=== PATIENT | male | born 1990 | race African-American/Black ===

== ENCOUNTER 2016-09-05 18:07 | Emergency (ER) | payer OTHER ==
[2016-09-05] MEDS ORDERED: LIDOCAINE 2% MDV 20 ML VIAL As Ordered ONE (18:26)
[2016-09-05] MEDS ORDERED: MORPHINE 4 MG/ML 1ML SYRINGE As Ordered ONE (18:44)
[2016-09-05] MEDS ORDERED: ceFAZolin 1GM INJ (J0690) As Ordered ONE (18:45)
--- NOTE | 2016-09-05 18:54 | REP ---
Clinical: Trauma. Technique: AP, lateral, bilateral oblique views of the left third digit. Findings: There is partial amputation of the soft tissues and the very tip of the distal phalanx at the terminal tuft. Nondisplaced fracture of the distal phalanx is also identified. Impression: Trauma to the distal phalanx including partial amputation and nondisplaced fracture. Signed by Calderon Penny MD 09/05/2016 06:46 P
[2016-09-05] MEDS ORDERED: NORCO 5/325MG TABLET (BULK) As Ordered ONE (19:54)
--- NOTE | 2016-09-05 20:06 | EDDOCDS ---
Physician Documentation [facility] Name: Arjun Young Age: 26 yrs Sex: Male : 1990 Arrival Date: 09/05/2016 Time: 18:07 Bed I7 / 29 Private MD: Colleen [facility] [place] Disposition: 09/05/16 19:46 Discharged to Home/Self Care. Impression: Laceration without foreign body of left middle finger without damage to nail, Nondisplaced fracture of distal phalanx of left middle finger - open. - Condition is Stable. - Discharge Instructions: Finger Fracture, Fingertip Injuries and Amputations, Laceration Care, Adult. - Prescriptions for Keflex 500 mg Oral Capsule - take 1 capsule by ORAL route every 8 hours for 10 days; 30 capsule. [place] 5- 325 mg Oral Tablet - take 1 tablet by ORAL route every 6 hours As needed MDD: 4 tabs; 20 tablet. - Medication Reconciliation, Local Pharmacy Hours form. - Follow up: Jesus Miranda; When: Tomorrow; Reason: Recheck today's complaints, Continuance of care. - Problem is new. - Symptoms are unchanged. - Notes: follow up with dr miranda tomorrow at ortho clinic at 11am Historical: - Allergies: No known drug Allergies; - Home Meds: 1. none - PMHx: none; - PSHx: none; - Social history: Smoking status: Patient states was never smoker of tobacco. Patient uses alcohol only on a social basis. Patient/guardian denies using street drugs, No barriers to communication noted, The patient speaks fluent [place], Speaks appropriately for age. - Family history: Not pertinent. - : The pt / caregiver states he / she is not on anticoagulants. Home medication list is obtained from the patient. - Exposure Risk Screening:: None identified. Vital Signs: 09/05 18:09 BP 167 / 54; Pulse 64; Resp 16; Temp 97.8(O); Pulse Ox 97% on R/A; Weight 115.21 kg / lr2 253.99 lbs (R); Height 6 ft. 2 in. (187.96 cm) (R); Pain 7/10; 19:50 BP 146 / 69; Pulse 63; Resp 18; Temp 97; Pulse Ox 100% ; Pain 5/10; jlm 18:09 Body Mass Index 32.61 (115.21 kg, 187.96 cm) lr2 MDM: 18:16 Fingers Ordered. EDMS 18:24 Lidocaine 20 mg/mL (2 %) 10 ml Infiltration once; to bedside ordered. mo1 18:36 IV Saline Lock ordered. mo1 18:37 morphine 4 mg IVP once ordered. mo1 18:37 ceFAZolin 2 grams IVPB once over 30 mins; dilute in 50mL of NS or D5W ordered. mo1 19:43 Dressing ordered. mo1 19:43 HYDROcodone-acetaminophen 4 pack- 5 mg-325 mg 1 packets PO Per package directions; mo1 Dispense with patient. 1 po q4h prn for pain ordered. 19:45 Financial registration complete. zo Administered Medications: 18:32 Drug: Lidocaine 10 ml [lidocaine 20 mg/mL (2 %) injection solution (10 mL)] {Note: kc3 administered by LEXUS Calderon.} Route: Infiltration; 18:55 Drug: morphine 4 mg [morphine 4 mg/mL intravenous cartridge (1 mL)] Route: IVP; Site: rs3 left antecubital; 18:55 Drug: ceFAZolin 2 grams [cefazolin 1 gram solution for injection] Route: IVPB; Infused rs3 Over: 30 mins; Site: left antecubital; 19:56 Drug: HYDROcodone-acetaminophen 4 pack- 1 packets [hydrocodone 5 mg-acetaminophen 325 mf4 mg tablet (1 tabs)] {Co-Signature: rs3 (Daniela Braswell RN).} Route: PO; Signatures: Dispatcher MedHost EDMS Devan Long zo Ramos Cook,MEDICAL DEVICE SALES REPRESENTATIVE MEDICAL DEVICE SALES REPRESENTATIVE mf4 Layla Murrell RN RN ttb Bharat Ayala PA PA mo1 Daniela Braswell RN rs3 Mary Grant RN kc3 Daniela Braswell RN rs3 [facility] [place]
--- NOTE | 2016-09-05 20:07 | EDDOCDS ---
Nurse's Notes [facility] Name: Arjun Young Age: 26 yrs Sex: Male : 1990 Arrival Date: 09/05/2016 Time: 18:07 Bed I7 / 29 Private MD: HARJINDER Macias Diagnosis: Laceration without foreign body of left middle finger without damage to nail;Nondisplaced fracture of distal phalanx of left middle finger-open Presentation: 09/05 18:10 Presenting complaint: Patient states: weight fell onto left middle finger approx 1 hr ttb ago : pt and applications programmer state the "fingertip is gone". pt and applications programmer are asking for pain meds. Immunizations UTD. Adult Sepsis Screening: The patient does not have new or worsening altered mentation. Patient's respiratory rate is less than 22. Systolic blood pressure is greater than 100. Patient has a qSOFA score of 0- Negative Sepsis Screen. Suicide/Homicide risk assessment- the patient denies having any suicidal and/or homicidal ideations and does not present with any other emotional, behavioral or mental health complaints. 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 Transition of care: patient was not received from another setting of care. 18:10 Acuity: FROYLAN Level 3 ttb 18:10 Method Of Arrival: Ambulance ttb Triage Assessment: 18:12 General: Appears uncomfortable, well nourished, well groomed, Behavior is anxious, ttb appropriate for age, cooperative, pleasant. Pain: Location: left finger Pain currently is 7 out of 10 on a pain scale. Pt Declines HIV testing. Neurological: Level of Consciousness is awake, alert. Respiratory: No deficits noted. Airway is patent. GI: Denies nausea. Derm: Skin is normal, lacerated left middle finger. Musculoskeletal: Range of motion limited in left middle finger. Injury Description: crush injury to left middle finger. Historical: - Allergies: No known drug Allergies; - Home Meds: 1. none - PMHx: none; - PSHx: none; - Social history: Smoking status: Patient states was never smoker of tobacco. Patient uses alcohol only on a social basis. Patient/guardian denies using street drugs, No barriers to communication noted, The patient speaks fluent Estonian, Speaks appropriately for age. - Family history: Not pertinent. - : The pt / caregiver states he / she is not on anticoagulants. Home medication list is obtained from the patient. - Exposure Risk Screening:: None identified. Screenin:58 Screening information is obtained from the patient. Fall risk: No risks identified. rs3 Assistance ADL's: requires no assistance with activities of daily living. Abuse/DV Screen: The patient / caregiver reports he/she is: not in a situation that causes fear, pain or injury. Nutritional screening: No deficits noted. Advance Directives: Currently, there is no health care proxy. home support is adequate. Assessment: 18:55 General: Appears in no apparent distress, Behavior is appropriate for age, cooperative. rs3 Pain: Location: left third finger. Neurological: Level of Consciousness is awake, alert. Respiratory: Airway is patent Respiratory effort is even, unlabored. Derm: partial avulsion of goldberg side of third finger. bleeding moderate. sensation intact. Vital Signs: 18:09 BP 167 / 54; Pulse 64; Resp 16; Temp 97.8(O); Pulse Ox 97% on R/A; Weight 115.21 kg lr2 (R); Height 6 ft. 2 in. (187.96 cm) (R); Pain 7/10; 19:50 BP 146 / 69; Pulse 63; Resp 18; Temp 97; Pulse Ox 100% ; Pain 5/10; jlm 18:09 Body Mass Index 32.61 (115.21 kg, 187.96 cm) lr2 Vitals: 18:09 Log In Time: September 05, 2016 at 18:07. lr2 ED Course: 18:08 Patient visited by Ashley Kidd. lr2 18:08 Colleen [facility] [place] Private Physician. lr2 18:08 Patient moved to Waiting lr2 18:09 Patient moved to Pre RCE lr2 18:12 Triage Initiated ttb 18:15 Patient moved to Triage 1 ar3 18:22 Bharat Ayala PA is PHCP. mo1 18:22 Carlos Anaya MD is Attending Physician. mo1 18:35 Patient moved to I7 / ar3 18:36 Patient visited by Bharat Ayala PA. mo1 18:58 Maintain field IV. Dressing intact. Good blood return noted. Site clean & dry. rs3 19:21 Fingers Returned. EDMS 19:35 Patient visited by Daniela Braswell RN. rs3 19:46 Jesus Severino is Referral Physician. mo1 19:50 Patient visited by Nakia Mohr, Farm Equipment Mechanic Apprentice. [facility] 20:04 The patient / caregiver is instructed regarding the plan of care and ED course. mf4 20:04 Discontinued lock. No procedures done that require assistance. mf4 Administered Medications: 18:32 Drug: Lidocaine 10 ml [lidocaine 20 mg/mL (2 %) injection solution (10 mL)] {Note: kc3 administered by LEXUS Calderon.} Route: Infiltration; 18:55 Drug: morphine 4 mg [morphine 4 mg/mL intravenous cartridge (1 mL)] Route: IVP; Site: rs3 left antecubital; 18:55 Drug: ceFAZolin 2 grams [cefazolin 1 gram solution for injection] Route: IVPB; Infused rs3 Over: 30 mins; Site: left antecubital; 19:56 Drug: HYDROcodone-acetaminophen 4 pack- 1 packets [hydrocodone 5 mg-acetaminophen 325 mf4 mg tablet (1 tabs)] {Co-Signature: rs3 (Daniela Braswell RN).} Route: PO; Order Results: Radiology Order: Fingers Test: Fingers REASON FOR EXAMINATION: Trauma; Clinical: Trauma.; ; Technique: AP, lateral, bilateral oblique views of the left third digit.; ; Findings:; There is partial amputation of the soft tissues and the very tip of the distal; phalanx at the terminal tuft. Nondisplaced fracture of the distal phalanx is; also identified.; ; Impression:; Trauma to the distal phalanx including partial amputation and nondisplaced; fracture.; ; ; Signed by; Calderon Penny MD 09/05/2016 06:46 P; Outcome: 19:46 Discharge ordered by Provider. mo1 20:04 Discharge Assessment: Patient awake, alert and oriented x 3. No cognitive and/or mf4 functional deficits noted. Patient verbalized understanding of disposition instructions. patient administered narcotics - no. The following High Risk Discharge criteria are identified: None. Discharged to home ambulatory, with family, with friend. Condition: stable Condition: improved. Discharge instructions given to patient, Instructed on discharge instructions, follow up and referral plans. medication usage, Demonstrated understanding of instructions, Pt was receptive of discharge instructions/ teaching. Prescriptions given X 1. No special radiology studies were completed. Property sent home with patient. 20:06 Patient left the ED. mf4 Signatures: Dispatcher MedHost Daniela Gandhi,LUCINDA RN rs3 Danette Moeller, PLUSH WEAVER PLUSH WEAVER ar3 Ramos Cook,HOTEL ATTENDANT HOTEL ATTENDANT mf4 Layla Murrell, RN RN ttb Bharat Ayala PA PA mo1 Nakia Mohr, Farm Equipment Mechanic Apprentice Unit Mary Everett RN RN 3 Ashley Kidd 2 Daniela Braswell RN rs3 Corrections: (The following items were deleted from the chart) 19:37 18:55 Pain: Location: right third finger rs3 rs3 MTDD
--- NOTE | 2016-09-07 21:07 | EDDOCDS ---
Nurse's Notes [facility] Name: Arjun Young Age: 26 yrs Sex: Male : 1990 Arrival Date: 09/05/2016 Time: 18:07 Bed I7 / 29 Private MD: HARJINDER Macias Diagnosis: Laceration without foreign body of left middle finger without damage to nail;Nondisplaced fracture of distal phalanx of left middle finger-open Presentation: 09/05 18:10 Presenting complaint: Patient states: weight fell onto left middle finger approx 1 hr ttb ago : pt and tape duplicator state the "fingertip is gone". pt and tape duplicator are asking for pain meds. Immunizations UTD. Adult Sepsis Screening: The patient does not have new or worsening altered mentation. Patient's respiratory rate is less than 22. Systolic blood pressure is greater than 100. Patient has a qSOFA score of 0- Negative Sepsis Screen. Suicide/Homicide risk assessment- the patient denies having any suicidal and/or homicidal ideations and does not present with any other emotional, behavioral or mental health complaints. 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 Transition of care: patient was not received from another setting of care. 18:10 Acuity: FROYLAN Level 3 ttb 18:10 Method Of Arrival: Ambulance ttb Triage Assessment: 18:12 General: Appears uncomfortable, well nourished, well groomed, Behavior is anxious, ttb appropriate for age, cooperative, pleasant. Pain: Location: left finger Pain currently is 7 out of 10 on a pain scale. Pt Declines HIV testing. Neurological: Level of Consciousness is awake, alert. Respiratory: No deficits noted. Airway is patent. GI: Denies nausea. Derm: Skin is normal, lacerated left middle finger. Musculoskeletal: Range of motion limited in left middle finger. Injury Description: crush injury to left middle finger. Historical: - Allergies: No known drug Allergies; - Home Meds: 1. none - PMHx: none; - PSHx: none; - Social history: Smoking status: Patient states was never smoker of tobacco. Patient uses alcohol only on a social basis. Patient/guardian denies using street drugs, No barriers to communication noted, The patient speaks fluent Welsh, Speaks appropriately for age. - Family history: Not pertinent. - : The pt / caregiver states he / she is not on anticoagulants. Home medication list is obtained from the patient. - Exposure Risk Screening:: None identified. Screenin:58 Screening information is obtained from the patient. Fall risk: No risks identified. rs3 Assistance ADL's: requires no assistance with activities of daily living. Abuse/DV Screen: The patient / caregiver reports he/she is: not in a situation that causes fear, pain or injury. Nutritional screening: No deficits noted. Advance Directives: Currently, there is no health care proxy. home support is adequate. Assessment: 18:55 General: Appears in no apparent distress, Behavior is appropriate for age, cooperative. rs3 Pain: Location: left third finger. Neurological: Level of Consciousness is awake, alert. Respiratory: Airway is patent Respiratory effort is even, unlabored. Derm: partial avulsion of goldberg side of third finger. bleeding moderate. sensation intact. Vital Signs: 18:09 BP 167 / 54; Pulse 64; Resp 16; Temp 97.8(O); Pulse Ox 97% on R/A; Weight 115.21 kg lr2 (R); Height 6 ft. 2 in. (187.96 cm) (R); Pain 7/10; 19:50 BP 146 / 69; Pulse 63; Resp 18; Temp 97; Pulse Ox 100% ; Pain 5/10; jlm 18:09 Body Mass Index 32.61 (115.21 kg, 187.96 cm) lr2 Vitals: 18:09 Log In Time: September 05, 2016 at 18:07. lr2 ED Course: 18:08 Patient visited by Ashley Kidd. lr2 18:08 Colleen [facility] [place] is Private Physician. lr2 18:08 Patient moved to Waiting lr2 18:09 Patient moved to Pre RCE lr2 18:12 Triage Initiated ttb 18:15 Patient moved to Triage 1 ar3 18:22 Bharat Ayala PA is PHCP. mo1 18:22 Carlos Anaya MD is Attending Physician. mo1 18:35 Patient moved to I7 / ar3 18:36 Patient visited by Bharat Ayala PA. mo1 18:58 Maintain field IV. Dressing intact. Good blood return noted. Site clean & dry. rs3 19:21 Fingers Returned. EDMS 19:35 Patient visited by Daniela Braswell RN. rs3 19:46 Jesus Severino is Referral Physician. mo1 19:50 Patient visited by Nakia Mohr, Mechanical Operator. jlm 20:04 The patient / caregiver is instructed regarding the plan of care and ED course. mf4 20:04 Discontinued lock. No procedures done that require assistance. mf4 20:09 [facility] Payment Agreement was scanned into [employer] and attached to record. zo 20:44 Patient name changed from Arjun\\S\\\\S\\Chance\\S\\ to Arjun\\S\\ \\S\\Chance. EDMS 09/06 09:42 T-Sheet-- Draft Copy was scanned into [employer] and attached to record. gb Administered Medications: 09/05 18:32 Drug: Lidocaine 10 ml [lidocaine 20 mg/mL (2 %) injection solution (10 mL)] {Note: kc3 administered by PA. Kvng} Route: Infiltration; 18:55 Drug: morphine 4 mg [morphine 4 mg/mL intravenous cartridge (1 mL)] Route: IVP; Site: rs3 left antecubital; 18:55 Drug: ceFAZolin 2 grams [cefazolin 1 gram solution for injection] Route: IVPB; Infused rs3 Over: 30 mins; Site: left antecubital; 19:56 Drug: HYDROcodone-acetaminophen 4 pack- 1 packets [hydrocodone 5 mg-acetaminophen 325 mf4 mg tablet (1 tabs)] {Co-Signature: rs3 (Daniela Braswell RN).} Route: PO; Order Results: Radiology Order: Fingers Test: Fingers REASON FOR EXAMINATION: Trauma; Clinical: Trauma.; ; Technique: AP, lateral, bilateral oblique views of the left third digit.; ; Findings:; There is partial amputation of the soft tissues and the very tip of the distal; phalanx at the terminal tuft. Nondisplaced fracture of the distal phalanx is; also identified.; ; Impression:; Trauma to the distal phalanx including partial amputation and nondisplaced; fracture.; ; ; Signed by; Calderon Penny MD 09/05/2016 06:46 P; Outcome: 19:46 Discharge ordered by Provider. mo1 20:04 Discharge Assessment: Patient awake, alert and oriented x 3. No cognitive and/or mf4 functional deficits noted. Patient verbalized understanding of disposition instructions. patient administered narcotics - no. The following High Risk Discharge criteria are identified: None. Discharged to home ambulatory, with family, with friend. Condition: stable Condition: improved. Discharge instructions given to patient, Instructed on discharge instructions, follow up and referral plans. medication usage, Demonstrated understanding of instructions, Pt was receptive of discharge instructions/ teaching. Prescriptions given X 1. No special radiology studies were completed. Property sent home with patient. 20:06 Patient left the ED. mf4 Signatures: Dispatcher MedHost EDMS Georgiana Rodriguez, Reg Reg gb [place], HannaheaDaniela Berry,RN RN rs3 Danette Moeller, POLE INSPECTOR POLE INSPECTOR ar3 Ramos Cook,MEMBER SERVICES REPRESENTATIVE MEMBER SERVICES REPRESENTATIVE mf4 Layla Murrell, RN RN ttb Bharat Ayala PA PA mo1 Nakia Mohr, Mechanical Operator Unit Mary MillardRN RN 3 Ashley Kidd 2 Daniela Braswell RN rs3 Corrections: (The following items were deleted from the chart) 19:37 18:55 Pain: Location: right third finger rs3 rs3 Chart Complete MTDD
--- NOTE | 2016-09-07 21:07 | EDDOCDS ---
Physician Documentation [facility] Name: Arjun Young Age: 26 yrs Sex: Male : 1990 Arrival Date: 09/05/2016 Time: 18:07 Bed I7 / 29 Private MD: Colleen [facility] [place] Disposition: 09/05/16 19:46 Discharged to Home/Self Care. Impression: Laceration without foreign body of left middle finger without damage to nail, Nondisplaced fracture of distal phalanx of left middle finger - open. - Condition is Stable. - Discharge Instructions: Finger Fracture, Fingertip Injuries and Amputations, Laceration Care, Adult. - Prescriptions for Keflex 500 mg Oral Capsule - take 1 capsule by ORAL route every 8 hours for 10 days; 30 capsule. [place] 5- 325 mg Oral Tablet - take 1 tablet by ORAL route every 6 hours As needed MDD: 4 tabs; 20 tablet. - Medication Reconciliation, Local Pharmacy Hours form. - Follow up: Jesus Miranda; When: Tomorrow; Reason: Recheck today's complaints, Continuance of care. - Problem is new. - Symptoms are unchanged. - Notes: follow up with dr miranda tomorrow at ortho clinic at 11am Historical: - Allergies: No known drug Allergies; - Home Meds: 1. none - PMHx: none; - PSHx: none; - Social history: Smoking status: Patient states was never smoker of tobacco. Patient uses alcohol only on a social basis. Patient/guardian denies using street drugs, No barriers to communication noted, The patient speaks fluent Angolan, Speaks appropriately for age. - Family history: Not pertinent. - : The pt / caregiver states he / she is not on anticoagulants. Home medication list is obtained from the patient. - Exposure Risk Screening:: None identified. Vital Signs: 09/05 18:09 BP 167 / 54; Pulse 64; Resp 16; Temp 97.8(O); Pulse Ox 97% on R/A; Weight 115.21 kg / lr2 253.99 lbs (R); Height 6 ft. 2 in. (187.96 cm) (R); Pain 7/10; 19:50 BP 146 / 69; Pulse 63; Resp 18; Temp 97; Pulse Ox 100% ; Pain 5/10; jlm 18:09 Body Mass Index 32.61 (115.21 kg, 187.96 cm) lr2 MDM: 18:16 Fingers Ordered. EDMS 18:24 Lidocaine 20 mg/mL (2 %) 10 ml Infiltration once; to bedside ordered. mo1 18:36 IV Saline Lock ordered. mo1 18:37 morphine 4 mg IVP once ordered. mo1 18:37 ceFAZolin 2 grams IVPB once over 30 mins; dilute in 50mL of NS or D5W ordered. mo1 19:43 Dressing ordered. mo1 19:43 HYDROcodone-acetaminophen 4 pack- 5 mg-325 mg 1 packets PO Per package directions; mo1 Dispense with patient. 1 po q4h prn for pain ordered. 19:45 Financial registration complete. zo 20:09 [facility] Payment Agreement was scanned into [email or web address] and attached to record. zo 09/06 09:42 T-Sheet-- Draft Copy was scanned into [email or web address] and attached to record. gb Administered Medications: 09/05 18:32 Drug: Lidocaine 10 ml [lidocaine 20 mg/mL (2 %) injection solution (10 mL)] {Note: kc3 administered by LEXUS Calderon.} Route: Infiltration; 18:55 Drug: morphine 4 mg [morphine 4 mg/mL intravenous cartridge (1 mL)] Route: IVP; Site: rs3 left antecubital; 18:55 Drug: ceFAZolin 2 grams [cefazolin 1 gram solution for injection] Route: IVPB; Infused rs3 Over: 30 mins; Site: left antecubital; 19:56 Drug: HYDROcodone-acetaminophen 4 pack- 1 packets [hydrocodone 5 mg-acetaminophen 325 mf4 mg tablet (1 tabs)] {Co-Signature: rs3 (Daniela Braswell RN).} Route: PO; Signatures: Dispatcher MedHost EDMS Georgiana Rodriguez, Reg Reg gb Devan Long zo Ramos Cook,DINNER COOK DINNER COOK mf4 Layla Murrell RN RN ttb Bharat Ayala PA PA mo1 Daniela Braswell RN rs3 Mary Grant RN kc3 Daniela Braswell RN rs3 The chart was reviewed and I authenticate all verbal orders and agree with the evaluation and treatment provided.Attachments: 20:09 [facility] Payment Agreement zo 09/06 09:42 T-Sheet-- Draft Copy gb Chart Complete MTDD
--- NOTE | 2016-09-07 21:07 | EDDOCDS ---
Physician Documentation [facility] Name: Arjun Young Age: 26 yrs Sex: Male : 1990 Arrival Date: 09/05/2016 Time: 18:07 Bed I7 / 29 Private MD: [place] [facility] [place]: 09/05/16 19:46 Discharged to Home/Self Care. Impression: Laceration without foreign body of left middle finger without damage to nail, Nondisplaced fracture of distal phalanx of left middle finger - open. - Condition is Stable. - Discharge Instructions: Finger Fracture, Fingertip Injuries and Amputations, Laceration Care, Adult. - Prescriptions for Keflex 500 mg Oral Capsule - take 1 capsule by ORAL route every 8 hours for 10 days; 30 capsule. [place] 5- 325 mg Oral Tablet - take 1 tablet by ORAL route every 6 hours As needed MDD: 4 tabs; 20 tablet. - Medication Reconciliation, Local Pharmacy Hours form. - Follow up: Jesus Miranda; When: Tomorrow; Reason: Recheck today's complaints, Continuance of care. - Problem is new. - Symptoms are unchanged. - Notes: follow up with dr miranda tomorrow at [facility] at 11am Historical: - Allergies: No known drug Allergies; - Home Meds: 1. none - PMHx: none; - PSHx: none; - Social history: Smoking status: Patient states was never smoker of tobacco. Patient uses alcohol only on a social basis. Patient/guardian denies using street drugs, No barriers to communication noted, The patient speaks fluent [place]ican, Speaks appropriately for age. - Family history: Not pertinent. - : The pt / caregiver states he / she is not on anticoagulants. Home medication list is obtained from the patient. - Exposure Risk Screening:: None identified. Vital Signs: 09/05 18:09 BP 167 / 54; Pulse 64; Resp 16; Temp 97.8(O); Pulse Ox 97% on R/A; Weight 115.21 kg / lr2 253.99 lbs (R); Height 6 ft. 2 in. (187.96 cm) (R); Pain 7/10; 19:50 BP 146 / 69; Pulse 63; Resp 18; Temp 97; Pulse Ox 100% ; Pain 5/10; jlm 18:09 Body Mass Index 32.61 (115.21 kg, 187.96 cm) lr2 MDM: 18:16 Fingers Ordered. EDMS 18:24 Lidocaine 20 mg/mL (2 %) 10 ml Infiltration once; to bedside ordered. mo1 18:36 IV Saline Lock ordered. mo1 18:37 morphine 4 mg IVP once ordered. mo1 18:37 ceFAZolin 2 grams IVPB once over 30 mins; dilute in 50mL of NS or D5W ordered. mo1 19:43 Dressing ordered. mo1 19:43 HYDROcodone-acetaminophen 4 pack- 5 mg-325 mg 1 packets PO Per package directions; mo1 Dispense with patient. 1 po q4h prn for pain ordered. 19:45 Financial registration complete. zo 20:09 [facility] Payment Agreement was scanned into [employer] and attached to record. zo 09/06 09:42 T-Sheet-- Draft Copy was scanned into [employer] and attached to record. gb Administered Medications: 09/05 18:32 Drug: Lidocaine 10 ml [lidocaine 20 mg/mL (2 %) injection solution (10 mL)] {Note: kc3 administered by LEXUS Calderon.} Route: Infiltration; 18:55 Drug: morphine 4 mg [morphine 4 mg/mL intravenous cartridge (1 mL)] Route: IVP; Site: rs3 left antecubital; 18:55 Drug: ceFAZolin 2 grams [cefazolin 1 gram solution for injection] Route: IVPB; Infused rs3 Over: 30 mins; Site: left antecubital; 19:56 Drug: HYDROcodone-acetaminophen 4 pack- 1 packets [hydrocodone 5 mg-acetaminophen 325 mf4 mg tablet (1 tabs)] {Co-Signature: rs3 (Daniela Braswell RN).} Route: PO; Signatures: Dispatcher [employer] EDMS Georgiana Rodriguez, Reg Reg gb Devan Long zo Ramos Cook,GOLD WHEEL BLOCKER AND POLISHER G[employer] WHE[employer] BLOCKER AND POLISHER mf4 Layla Murrell RN RN ttb Bharat Ayala PA PA mo1 Daniela Braswell RN rs3 Mary Grant RN kc3 Daniela Braswell RN rs3 The chart was reviewed and I authenticate all verbal orders and agree with the evaluation and treatment provided.Attachments: 20:09 [facility] Payment Agreement zo 09/06 09:42 T-Sheet-- Draft Copy gb Chart Complete MTDD
== END 2016-09-05 20:06 | disposition home or self-care (01) ==
LOC: M ED 18:07
DX: S62.633B Displaced fracture of distal phalanx of left middle finger, initial encounter for open fracture (principal); S61.213A Laceration without foreign body of left middle finger without damage to nail, initial encounter; W22.8XXA Striking against or struck by other objects, initial encounter; Y92.89 Other specified places as the place of occurrence of the external cause; Y93.B3 Activity, free weights; Y99.8 Other external cause status
CPT/HCPCS: 73140; 96374; 96375; 99283; J0690